=== PATIENT | male | born 1980 | race Caucasian/White ===

== ENCOUNTER 2020-07-27 09:31 | Emergency (ER) | payer OTHER ==
[~2020-07-27] VITALS: Ht 177.8 cm; Wt 68.0 kg
[2020-07-27] MEDS ORDERED: HYDROCODONE-AC1 EA10 PO (12:27)
== END 2020-07-27 12:39 | disposition home or self-care (01) ==
LOC: ER 09:31
DX: T15.02XA Foreign body in cornea, left eye, initial encounter (principal); W45.8XXA Other foreign body or object entering through skin, initial encounter
CPT/HCPCS: 65222; 99283; A9270

== ENCOUNTER 2021-11-10 09:27 | Emergency (ER) | payer OTHER ==
[~2021-11-10] VITALS: Ht 177.8 cm; Wt 68.0 kg
[~2021-11-10 09:27] MED LIST: HYDROCODONE-AC1 EA10 PO
== END 2021-11-10 11:37 | disposition home or self-care (01) ==
LOC: ER 09:27
DX: J02.9 Acute pharyngitis, unspecified (principal); R59.0 Localized enlarged lymph nodes; F17.200 Nicotine dependence, unspecified, uncomplicated
CPT/HCPCS: 87430; A9270